=== PATIENT | female | born 1985 | race African-American/Black ===

== ENCOUNTER 2024-02-04 12:49 | Inpatient (IN) | payer OTHER ==
[~2024-02-04] VITALS: Ht 162.6 cm; Wt 114.3 kg
[2024-02-04] MEDS ORDERED: HYDROMORPHONE 1 MG/1 ML DISP.SYRIN IV ONE (13:30)
[2024-02-04] MEDS ORDERED: HYDROMORPHONE INJ 2 MG/ML DISP.SYRIN ONE ×3 (14:33→20:48)
[2024-02-04] MEDS ORDERED: diphenhydrAMINE HCL 50 MG/ML VIAL ONE ×2 (14:33→17:46)
[2024-02-04] MEDS: HYDROMORPHONE INJ 2 MG/ML DISP.SYRIN IM ONE ×3 (14:42→20:54)
[2024-02-04] MEDS: diphenhydrAMINE HCL 50 MG/ML VIAL IM ONE ×2 (14:42→17:51)
[2024-02-04 16:43] LABS: CALCIUM, SERUM 9.2 mg/dL (8.5-10.1); CREATININE 0.8 mg/dL (0.6-1.3); POTASSIUM 3.3 mmol/L (3.5-5.1)
[2024-02-04] MEDS ORDERED: ONDANSETRON HCL/PF 4 MG/2 ML VIAL ONE (20:47)
[2024-02-04 21:30] VITALS: O2SAT 99
[2024-02-04] MEDS: IV NS 0.9% 1,000 ML BAG IV ONE (22:00)
[2024-02-04] MEDS: ONDANSETRON HCL/PF - ER 4 MG/2 ML VIAL IV ONE (22:00)
[2024-02-04 22:14] LABS: BASOPHILS # (AUTO) 0.1 K/uL (0.0-0.2); BASOPHILS % (AUTO) 1.3 % (0.0-2.0); EOSINOPHILS # (AUTO) 0.1 K/uL (0.0-0.7); EOSINOPHILS % (AUTO) 1.6 % (0.0-6.0); HEMATOCRIT 26 % (33-45); HEMOGLOBIN 8.4 g/dL (11.5-14.8); MEAN CORPUSCULAR HEMOGLOBIN 28 PG (26.0-33.0); MEAN CORPUSCULAR HGB CONC 33 g/dl (31.0-36.0); MEAN CORPUSCULAR VOLUME 86 fL (82-100); MONOCYTES # (AUTO) 0.4 K/uL (0.1-1.30); MONOCYTES % (AUTO) 11.6 % (2.0-12.0); NEUTROPHILS # (AUTO) 2.3 K/uL (1.8-8.9); NEUTROPHILS % (AUTO) 60.5 % (43.0-81.0); PLATELET COUNT (AUTO) 133 K/uL (150-450); RED BLOOD CELL COUNT(AUTO) 2.99 MIL/uL (4.0-5.2); RED CELL DISTRIBUTION WIDTH 19.2 % (11.5-15.0); RETICULOCYTE COUNT 1.7 % (0.6-2.5); WHITE BLOOD COUNT (AUTO) 3.9 K/uL (4.3-11.0)
[2024-02-04] MEDS ORDERED: ACETAMINOPHEN 325 MG TABLET PO PRN (23:00)
[2024-02-04] MEDS ORDERED: MAGNESIUM HYDROXIDE 30 ML UDC PO PRN (23:00)
[2024-02-04] MEDS ORDERED: ONDANSETRON HCL/PF 4 MG/2 ML VIAL IVP PRN (23:00)
[2024-02-04] MEDS ORDERED: diphenhydrAMINE HCL 50 MG/ML VIAL IV PRN (23:00)
[2024-02-04] MEDS ORDERED: Z GUARD REMEDY 4 OZ OINT TP PRN (23:00)
[2024-02-04] MEDS ORDERED: MAG HYDROX/AL HYDROX/SIMETH 30 ML UDC PO PRN (23:00)
[2024-02-04] MEDS: POTASSIUM CHLORIDE 20 MEQ TAB.PRT.SR PO ONE (23:32)
[2024-02-04] MEDS: IV NS 0.9% 1,000 ML IV PRN (23:32)
[2024-02-05] MEDS: HYDROMORPHONE INJ 2 MG/ML DISP.SYRIN IV PRN (00:20)
[2024-02-05] MEDS: diphenhydrAMINE HCL 50 MG/ML VIAL IV PRN ×2 (00:20→11:42)
[2024-02-05 07:00] VITALS: BP 107/68; TEMP 97.5; O2SAT 100
[2024-02-05 07:22] LABS: BASOPHILS % (AUTO) 0.4 % (0.0-2.0); EOSINOPHILS # (AUTO) 0.1 K/uL (0.0-0.7); EOSINOPHILS % (AUTO) 1.3 % (0.0-6.0); HEMATOCRIT 26 % (33-45); HEMOGLOBIN 8.5 g/dL (11.5-14.8); LYMPHOCYTES # (AUTO) 0.8 K/uL (0.8-4.8); LYMPHOCYTES % (AUTO) 21.9 % (20.0-44.0); MEAN CORPUSCULAR HEMOGLOBIN 28 PG (26.0-33.0); MEAN CORPUSCULAR HGB CONC 32 g/dl (31.0-36.0); MEAN CORPUSCULAR VOLUME 86 fL (82-100); MONOCYTES # (AUTO) 0.4 K/uL (0.1-1.30); MONOCYTES % (AUTO) 10.1 % (2.0-12.0); NEUTROPHILS # (AUTO) 2.5 K/uL (1.8-8.9); NEUTROPHILS % (AUTO) 66.3 % (43.0-81.0); PLATELET COUNT (AUTO) 129 K/uL (150-450); RED BLOOD CELL COUNT(AUTO) 3.06 MIL/uL (4.0-5.2); RED CELL DISTRIBUTION WIDTH 19.1 % (11.5-15.0); WHITE BLOOD COUNT (AUTO) 3.8 K/uL (4.3-11.0)
[2024-02-05] MEDS: PANTOPRAZOLE 40 MG TABLET.DR PO SCH (07:54)
[2024-02-05] MEDS ORDERED: HYDR500C2 PO (08:13)
[2024-02-05] MEDS ORDERED: HYDR4TAB4 PO (08:13)
[2024-02-05] MEDS ORDERED: FOLI0.4T6 PO (08:13)
[2024-02-05] MEDS ORDERED: APIX5TAB PO (08:13)
[2024-02-05 08:20] LABS: CALCIUM, SERUM 8.4 mg/dL (8.5-10.1); CREATININE 0.8 mg/dL (0.6-1.3); PHOSPHORUS 5.1 mg/dL (2.5-4.9); POTASSIUM 3.6 mmol/L (3.5-5.1)
[2024-02-05] MEDS: HYDROXYUREA 500 MG CAPSULE PO SCH (10:59)
[2024-02-05 11:30] VITALS: BP 118/65; TEMP 98.2; O2SAT 100
[2024-02-05 14:22] LABS: HIV-1 p24 ANTIGEN NON REACTIVE (NONREACTIVE); HIV-1/2 ANTIBODY NON REACTIVE (NONREACTIVE)
[2024-02-05 16:00] VITALS: BP 112/55; TEMP 98.1; O2SAT 100
[2024-02-05] MEDS: APIXABAN 5 MG TABLET PO SCH (16:05)
[2024-02-05 20:00] VITALS: BP 113/67; TEMP 98.2; O2SAT 98
[2024-02-05] MEDS: IV NS 0.9% 1,000 ML IV PRN (21:53)
[2024-02-06 08:00] VITALS: BP 114/81; TEMP 98.4; O2SAT 98
[2024-02-06] MEDS: FOLIC ACID 1 MG TABLET PO SCH (08:23)
[2024-02-06 16:00] VITALS: BP 119/66; TEMP 99.1; O2SAT 100
[2024-02-06 20:33] VITALS: BP 119/56; TEMP 99.3; O2SAT 100
[2024-02-07 08:00] VITALS: BP 112/62; TEMP 100; O2SAT 98
[2024-02-07 10:09] LABS: HEPATITIS B SURFACE AB Equivocal (.)
[2024-02-07 16:00] VITALS: BP 108/60; TEMP 99.3; O2SAT 96
[2024-02-07 20:27] VITALS: BP 103/61; TEMP 99.9; O2SAT 96
== END 2024-02-07 21:00 | disposition home or self-care (01) | DRG 812 ==
LOC: ER 12:52 → MED 21:53
PROVIDERS: ADMIT Nurse Practitioner Family; ATTEND Nurse Practitioner Acute Care
PROC: 05HY33Z Insertion of Infusion Device into Upper Vein, Percutaneous Approach (ICD-10-PCS; principal; 2024-02-04)
DX: D57.00 Hb-SS disease with crisis, unspecified (principal); Z68.41 Body mass index [BMI] 40.0-44.9, adult; E87.6 Hypokalemia; G89.4 Chronic pain syndrome; E66.01 Morbid (severe) obesity due to excess calories; J45.909 Unspecified asthma, uncomplicated; Z79.01 Long term (current) use of anticoagulants; Z88.5 Allergy status to narcotic agent; Z86.711 Personal history of pulmonary embolism; Z86.718 Personal history of other venous thrombosis and embolism; Z53.9 Procedure and treatment not carried out, unspecified reason; R73.9 Hyperglycemia, unspecified
CPT/HCPCS: 36415; 80048-TC; 83735-TC; 84100-TC; 85025-TC; 85045-TC; 86706; 86803; 87806; A4223; A6253; G0378; J1171; J1200; J2405; J7030

== ENCOUNTER 2024-03-01 02:31 | Emergency (ER) | payer OTHER ==
[~2024-03-01] VITALS: Ht 170.2 cm; Wt 83.9 kg
[~2024-03-01 02:31] MED LIST: APIX5TAB PO; FOLI0.4T6 PO; HYDR4TAB4 PO; HYDR500C2 PO
[2024-03-01] MEDS ORDERED: ONDANSETRON HCL/PF 4 MG/2 ML VIAL ONE (03:23)
[2024-03-01] MEDS ORDERED: HYDROMORPHONE 1 MG/1 ML DISP.SYRIN ONE (03:24)
[2024-03-01] MEDS: IV NS 0.9% 1,000 ML BAG IV ONE (03:25)
[2024-03-01] MEDS: ONDANSETRON HCL/PF 4 MG/2 ML VIAL IVP ONE (03:25)
[2024-03-01] MEDS: HYDROMORPHONE 1 MG/1 ML DISP.SYRIN IV ONE (03:25)
[2024-03-01 03:46] LABS: LYMPHOCYTES # (AUTO) 1.2 K/uL (0.8-4.8); MONOCYTES # (AUTO) 0.4 K/uL (0.1-1.30)
[2024-03-01 03:52] LABS: BASOPHILS % (AUTO) 0.3 % (0.0-2.0); EOSINOPHILS % (AUTO) 1.7 % (0.0-6.0); HEMATOCRIT 27 % (33-45); HEMOGLOBIN 8.9 g/dL (11.5-14.8); LYMPHOCYTES % (AUTO) 44.7 % (20.0-44.0); MEAN CORPUSCULAR HEMOGLOBIN 29 PG (26.0-33.0); MEAN CORPUSCULAR HGB CONC 33 g/dl (31.0-36.0); MEAN CORPUSCULAR VOLUME 87 fL (82-100); MONOCYTES % (AUTO) 13.7 % (2.0-12.0); NEUTROPHILS # (AUTO) 1.1 K/uL (1.8-8.9); NEUTROPHILS % (AUTO) 39.6 % (43.0-81.0); PLATELET COUNT (AUTO) 86 K/uL (150-450); RED BLOOD CELL COUNT(AUTO) 3.11 MIL/uL (4.0-5.2); WHITE BLOOD COUNT (AUTO) 2.7 K/uL (4.3-11.0)
[2024-03-01 04:01] LABS: CALCIUM, SERUM 8.4 mg/dL (8.5-10.1); CREATININE 0.8 mg/dL (0.6-1.3); POTASSIUM 4.4 mmol/L (3.5-5.1)
[2024-03-01 04:08] LABS: PARTIAL THROMBOPLASTIN TIME 28.1 SEC (24.3-34.3); PROTHROMBIN TIME 10.6 SECS (9.2-11.1)
[2024-03-01 04:30] VITALS: BP 138/86; TEMP 98.3; O2SAT 100
[2024-03-01 06:57] LABS: BASOPHILS % (MANUAL) 0 % (0.0-2.0); EOSINOPHILS % (MANUAL) 0 % (0-4); LYMPHOCYTES % (MANUAL) 48 % (16-48); MONOCYTES % (MANUAL) 15 % (0-11.0); NEUTROPHILS % (MANUAL) 37 (42-76)
[2024-03-01 06:58] LABS: ANISOCYTOSIS 2+; PLATELET ESTIMATE DECREASED
== END 2024-03-01 04:39 | disposition home or self-care (01) ==
LOC: ER 02:33
DX: D57.00 Hb-SS disease with crisis, unspecified (principal); J45.909 Unspecified asthma, uncomplicated; Z79.01 Long term (current) use of anticoagulants; Z88.5 Allergy status to narcotic agent
CPT/HCPCS: 99284; 96374; 96361; 96375; 85025; 80048; 36415; 85730; 85007; J2405; J7030; J1171

== ENCOUNTER 2024-03-20 15:13 | Emergency (ER) | payer OTHER ==
[~2024-03-20] VITALS: Ht 162.6 cm; Wt 113.4 kg
[2024-03-20] MEDS ORDERED: diphenhydrAMINE HCL 50 MG/ML VIAL ONE (16:56)
[2024-03-20] MEDS ORDERED: HYDROMORPHONE INJ 2 MG/ML DISP.SYRIN ONE (16:57)
[2024-03-20] MEDS: HYDROMORPHONE INJ 2 MG/ML DISP.SYRIN IM ONE (17:05)
[2024-03-20] MEDS: diphenhydrAMINE HCL 50 MG/ML VIAL IM ONE (17:05)
[2024-03-20 19:04] VITALS: BP 137/82; TEMP 98; O2SAT 99
== END 2024-03-20 19:09 | disposition home or self-care (01) ==
LOC: ER 15:13
DX: D57.00 Hb-SS disease with crisis, unspecified (principal); J45.909 Unspecified asthma, uncomplicated; Z79.01 Long term (current) use of anticoagulants; Z60.2 Problems related to living alone; Z88.5 Allergy status to narcotic agent
CPT/HCPCS: 99284; 71045; 96372 ×2; 93005; J1200; J1171

== ENCOUNTER 2024-04-18 16:50 | Inpatient (IN) | payer OTHER ==
[~2024-04-18] VITALS: Ht 162.6 cm; Wt 112.9 kg
[2024-04-18] MEDS ORDERED: diphenhydrAMINE HCL 50 MG/ML VIAL ONE ×2 (18:28→20:23)
[2024-04-18] MEDS ORDERED: HYDROMORPHONE INJ 2 MG/ML DISP.SYRIN ONE ×3 (18:28→23:26)
[2024-04-18] MEDS: IV NS 0.9% 1,000 ML BAG IV ONE (18:30)
[2024-04-18 18:31] LABS: BASOPHILS % (AUTO) 0.3 % (0.0-2.0); EOSINOPHILS # (AUTO) 0.1 K/uL (0.0-0.7); EOSINOPHILS % (AUTO) 1.8 % (0.0-6.0); HEMATOCRIT 27 % (33-45); HEMOGLOBIN 8.6 g/dL (11.5-14.8); LYMPHOCYTES # (AUTO) 0.7 K/uL (0.8-4.8); LYMPHOCYTES % (AUTO) 22.2 % (20.0-44.0); MEAN CORPUSCULAR HEMOGLOBIN 27 PG (26.0-33.0); MEAN CORPUSCULAR HGB CONC 32 g/dl (31.0-36.0); MEAN CORPUSCULAR VOLUME 84 fL (82-100); MONOCYTES # (AUTO) 0.4 K/uL (0.1-1.30); MONOCYTES % (AUTO) 13.1 % (2.0-12.0); NEUTROPHILS # (AUTO) 1.9 K/uL (1.8-8.9); NEUTROPHILS % (AUTO) 62.6 % (43.0-81.0); PLATELET COUNT (AUTO) 79 K/uL (150-450); RED CELL DISTRIBUTION WIDTH 21.8 % (11.5-15.0); WHITE BLOOD COUNT (AUTO) 3.1 K/uL (4.3-11.0)
[2024-04-18] MEDS: diphenhydrAMINE HCL 50 MG/ML VIAL IV ONE ×2 (18:31→20:29)
[2024-04-18 18:37] LABS: CALCIUM, SERUM 9.1 mg/dL (8.5-10.1); CREATININE 0.8 mg/dL (0.6-1.3)
[2024-04-18] MEDS: HYDROMORPHONE INJ 2 MG/ML DISP.SYRIN IV ONE ×3 (18:38→23:27)
[2024-04-18 23:50] VITALS: BP 127/61; TEMP 98; O2SAT 96
[2024-04-18 23:51] LABS: APPEARANCE,URINE SLIGHTLY CLOUDY (CLEAR); BILIRUBIN,URINE NEGATIVE (NEGATIVE); BLOOD, URINE NEGATIVE Ery/uL (NEGATIVE); COLOR,URINE YELLOW (YELLOW); KETONES,URINE NEGATIVE (NEGATIVE); LEUKOCYTE ESTERASE ,URINE NEGATIVE (NEGATIVE); NITRITE, URINE NEGATIVE (NEGATIVE); PH,URINE 6.5 (5.0-8.0); PROTEIN,URINE NEGATIVE (NEGATIVE); UGLUCOSE NEGATIVE (NEGATIVE)
[2024-04-19 00:06] LABS: PREGNANCY TEST URINE QUAL NEGATIVE (NEGATIVE)
[2024-04-19 00:21] LABS: RBC,URINE NONE SEEN /HPF (0-2); WBC,URINE NONE SEEN /HPF (0-3)
[2024-04-19 00:22] LABS: ADD URINE CULTURE NO; BACTERIA,URINE Rare /HPF (None Seen); SQUAMOUS EPITHELIAL CELL,UR 81-100 /HPF (None Seen)
[2024-04-19] MEDS ORDERED: ACETAMINOPHEN 325 MG TABLET PO PRN (01:30)
[2024-04-19] MEDS ORDERED: ONDANSETRON HCL/PF 4 MG/2 ML VIAL IVP PRN (01:30)
[2024-04-19] MEDS ORDERED: MAG HYDROX/AL HYDROX/SIMETH 30 ML UDC PO PRN (01:30)
[2024-04-19] MEDS ORDERED: diphenhydrAMINE HCL 50 MG/ML VIAL IV PRN (01:30)
[2024-04-19 01:49] VITALS: BP 127/61; TEMP 98; O2SAT 96
[2024-04-19] MEDS: IV NS 0.9% 1,000 ML IV PRN (02:33)
[2024-04-19] MEDS: HYDROMORPHONE INJ 2 MG/ML DISP.SYRIN IV PRN (02:37)
[2024-04-19 05:53] LABS: ANISOCYTOSIS 1+; EOSINOPHILS % (MANUAL) 3 % (0-4); LYMPHOCYTES % (MANUAL) 19 % (16-48); MONOCYTES % (MANUAL) 14 % (0-11.0); NEUTROPHILS % (MANUAL) 64 (42-76); PLATELET ESTIMATE DECREASED
[2024-04-19] MEDS: APIXABAN 5 MG TABLET PO SCH (08:27)
[2024-04-19] MEDS: HYDROXYUREA 500 MG CAPSULE PO SCH (08:28)
[2024-04-19] MEDS: FOLIC ACID 1 MG TABLET PO SCH ×2 (10:02→12:33)
[2024-04-19 16:00] VITALS: BP 118/59; TEMP 97.9; O2SAT 100
[2024-04-19 19:55] VITALS: BP 134/80; TEMP 97.5; O2SAT 100
[2024-04-19 20:44] VITALS: BP 115/77; TEMP 98.5; O2SAT 95
[2024-04-19 20:48] VITALS: BP 134/80; TEMP 97.5; O2SAT 100
[2024-04-19 20:52] VITALS: BP 134/80; TEMP 97.5; O2SAT 100
[2024-04-20 08:28] VITALS: BP 99/58; TEMP 97.7; O2SAT 98
[2024-04-20 09:52] LABS: BASOPHILS % (AUTO) 0.5 % (0.0-2.0); EOSINOPHILS # (AUTO) 0.1 K/uL (0.0-0.7); EOSINOPHILS % (AUTO) 2.1 % (0.0-6.0); HEMATOCRIT 26 % (33-45); HEMOGLOBIN 8.4 g/dL (11.5-14.8); LYMPHOCYTES # (AUTO) 0.9 K/uL (0.8-4.8); LYMPHOCYTES % (AUTO) 35.7 % (20.0-44.0); MEAN CORPUSCULAR HEMOGLOBIN 27 PG (26.0-33.0); MEAN CORPUSCULAR HGB CONC 32 g/dl (31.0-36.0); MEAN CORPUSCULAR VOLUME 84 fL (82-100); MONOCYTES # (AUTO) 0.2 K/uL (0.1-1.30); MONOCYTES % (AUTO) 8.8 % (2.0-12.0); NEUTROPHILS # (AUTO) 1.3 K/uL (1.8-8.9); NEUTROPHILS % (AUTO) 52.9 % (43.0-81.0); PLATELET COUNT (AUTO) 73 K/uL (150-450); RED BLOOD CELL COUNT(AUTO) 3.13 MIL/uL (4.0-5.2); RED CELL DISTRIBUTION WIDTH 21.4 % (11.5-15.0); WHITE BLOOD COUNT (AUTO) 2.5 K/uL (4.3-11.0)
[2024-04-20 10:03] LABS: CALCIUM, SERUM 8.4 mg/dL (8.5-10.1); CREATININE 0.7 mg/dL (0.6-1.3); PHOSPHORUS 3.8 mg/dL (2.5-4.9); POTASSIUM 4.1 mmol/L (3.5-5.1)
[2024-04-20 12:12] LABS: ANISOCYTOSIS 1+; BASOPHILS % (MANUAL) 0 % (0.0-2.0); EOSINOPHILS % (MANUAL) 3 % (0-4); LYMPHOCYTES % (MANUAL) 31 % (16-48); MONOCYTES % (MANUAL) 11 % (0-11.0); NEUTROPHILS % (MANUAL) 55 (42-76); PLATELET ESTIMATE DECREASED
[2024-04-20 16:27] VITALS: BP 114/71; TEMP 98.2; O2SAT 95
[2024-04-20 20:00] VITALS: BP 131/85; TEMP 98.5; O2SAT 100
[2024-04-21 08:00] VITALS: BP 142/86; TEMP 98.2; O2SAT 99
[2024-04-21] MEDS: HYDROMORPHONE HCL 2 MG TABLET PO PRN (11:56)
[2024-04-21 15:55] VITALS: BP 156/88; TEMP 98.1; O2SAT 100
== END 2024-04-21 17:30 | disposition home or self-care (01) | DRG 812 ==
LOC: ER 17:01 → MED 23:32
PROVIDERS: ADMIT Nurse Practitioner Acute Care; ATTEND Internal Medicine
DX: D57.00 Hb-SS disease with crisis, unspecified (principal); D68.59 Other primary thrombophilia; J45.909 Unspecified asthma, uncomplicated; Z79.01 Long term (current) use of anticoagulants; Z88.5 Allergy status to narcotic agent; Z91.013 Allergy to seafood; Z79.899 Other long term (current) drug therapy
CPT/HCPCS: 36415; 80048-TC; 81001; 83615-TC; 83735-TC; 84100-TC; 84703-TC; 85025-TC; 85045-TC; 87081-TC; A4223; G0378; J1171; J1200; J7030

== ENCOUNTER 2024-05-02 21:40 | Emergency (ER) | payer OTHER ==
[~2024-05-02] VITALS: Ht 162.6 cm; Wt 97.5 kg
[2024-05-02] MEDS ORDERED: HYDROMORPHONE 1 MG/1 ML DISP.SYRIN ONE (22:51)
[2024-05-02] MEDS: IV NS 0.9% 1,000 ML BAG IV ONE (23:00)
[2024-05-02] MEDS: HYDROMORPHONE 1 MG/1 ML DISP.SYRIN IV ONE (23:00)
[2024-05-03 00:04] LABS: BASOPHILS # (AUTO) 0.1 K/uL (0.0-0.2); BASOPHILS % (AUTO) 1.3 % (0.0-2.0); EOSINOPHILS % (AUTO) 0.4 % (0.0-6.0); HEMATOCRIT 28 % (33-45); HEMOGLOBIN 8.9 g/dL (11.5-14.8); LYMPHOCYTES # (AUTO) 1.1 K/uL (0.8-4.8); LYMPHOCYTES % (AUTO) 19.7 % (20.0-44.0); MEAN CORPUSCULAR HEMOGLOBIN 26 PG (26.0-33.0); MEAN CORPUSCULAR HGB CONC 32 g/dl (31.0-36.0); MEAN CORPUSCULAR VOLUME 82 fL (82-100); MONOCYTES # (AUTO) 0.7 K/uL (0.1-1.30); MONOCYTES % (AUTO) 12.6 % (2.0-12.0); NEUTROPHILS # (AUTO) 3.7 K/uL (1.8-8.9); PLATELET COUNT (AUTO) 74 K/uL (150-450); RED BLOOD CELL COUNT(AUTO) 3.36 MIL/uL (4.0-5.2); RED CELL DISTRIBUTION WIDTH 22.3 % (11.5-15.0); WHITE BLOOD COUNT (AUTO) 5.6 K/uL (4.3-11.0)
[2024-05-03] MEDS ORDERED: HYDROMORPHONE 1 MG/1 ML DISP.SYRIN ONE (00:06)
[2024-05-03 00:14] LABS: CREATININE 0.7 mg/dL (0.6-1.3); POTASSIUM 3.2 mmol/L (3.5-5.1)
[2024-05-03 00:35] LABS: APPEARANCE,URINE CLEAR (CLEAR); BILIRUBIN,URINE NEGATIVE (NEGATIVE); BLOOD, URINE TRACE-INTA Ery/uL (NEGATIVE); COLOR,URINE YELLOW (YELLOW); KETONES,URINE TRACE mg/dL (NEGATIVE); LEUKOCYTE ESTERASE ,URINE NEGATIVE (NEGATIVE); NITRITE, URINE NEGATIVE (NEGATIVE); PH,URINE 6.5 (5.0-8.0); PROTEIN,URINE TRACE mg/dl (NEGATIVE); UGLUCOSE NEGATIVE (NEGATIVE); UROBILINOGEN,URINE 0.2 EU/dL (0.2)
[2024-05-03 00:46] VITALS: BP 147/65; TEMP 98.3; O2SAT 98
[2024-05-03 00:47] LABS: PREGNANCY TEST URINE QUAL NEGATIVE (NEGATIVE)
[2024-05-03 01:13] LABS: ADD URINE CULTURE NO; BACTERIA,URINE Rare /HPF (None Seen); RBC,URINE 0-2 /HPF (0-2); SQUAMOUS EPITHELIAL CELL,UR Moderate /HPF (None Seen); WBC,URINE 0-2 /HPF (0-3)
[2024-05-03 02:26] LABS: ANISOCYTOSIS 1+; BASOPHILS % (MANUAL) 0 % (0.0-2.0); EOSINOPHILS % (MANUAL) 0 % (0-4); LYMPHOCYTES % (MANUAL) 25 % (16-48); MONOCYTES % (MANUAL) 19 % (0-11.0); NEUTROPHILS % (MANUAL) 56 (42-76); PLATELET ESTIMATE DECREASED; STOMATOCYTES FEW
== END 2024-05-03 00:48 | disposition home or self-care (01) ==
LOC: ER 21:47
DX: D57.00 Hb-SS disease with crisis, unspecified (principal); J45.909 Unspecified asthma, uncomplicated; Z79.01 Long term (current) use of anticoagulants; Z88.5 Allergy status to narcotic agent; Z60.2 Problems related to living alone
CPT/HCPCS: 99283; 96374; 85025; 80048; 85045; 36415; 84703; 81001; 85007; J1171; J7030

== ENCOUNTER 2024-07-12 10:03 | Emergency (ER) | payer OTHER, MEDICAID ==
[~2024-07-12] VITALS: Ht 162.6 cm; Wt 93.0 kg
[2024-07-12 10:53] VITALS: TEMP 98.4
[2024-07-12] MEDS ORDERED: HYDROMORPHONE INJ SYRINGE 1 MG in IV D5W 50 ML IV PRN (11:30)
[2024-07-12] MEDS ORDERED: HYDROMORPHONE INJ 2 MG/ML DISP.SYRIN ONE (11:38)
[2024-07-12] MEDS ORDERED: diphenhydrAMINE HCL 25 MG CAPSULE ONE (11:38)
[2024-07-12] MEDS: HYDROMORPHONE INJ 2 MG/ML DISP.SYRIN IM ONE (11:44)
[2024-07-12] MEDS: diphenhydrAMINE HCL 25 MG CAPSULE PO ONE (11:45)
[2024-07-12] MEDS: IV NS 0.9% 1,000 ML BAG IV ONE (12:25)
[2024-07-12 12:34] LABS: BASOPHILS # (AUTO) 0.1 K/uL (0.0-0.2); BASOPHILS % (AUTO) 1.4 % (0.0-2.0); EOSINOPHILS # (AUTO) 0.7 K/uL (0.0-0.7); EOSINOPHILS % (AUTO) 7.7 % (0.0-6.0); HEMATOCRIT 29 % (33-45); HEMOGLOBIN 9.5 g/dL (11.5-14.8); LYMPHOCYTES # (AUTO) 0.8 K/uL (0.8-4.8); LYMPHOCYTES % (AUTO) 8.5 % (20.0-44.0); MEAN CORPUSCULAR HEMOGLOBIN 25 PG (26.0-33.0); MEAN CORPUSCULAR HGB CONC 33 g/dl (31.0-36.0); MEAN CORPUSCULAR VOLUME 77 fL (82-100); MONOCYTES # (AUTO) 0.6 K/uL (0.1-1.30); MONOCYTES % (AUTO) 7.3 % (2.0-12.0); NEUTROPHILS # (AUTO) 6.6 K/uL (1.8-8.9); NEUTROPHILS % (AUTO) 75.1 % (43.0-81.0); PLATELET COUNT (AUTO) 121 K/uL (150-450); RED BLOOD CELL COUNT(AUTO) 3.76 MIL/uL (4.0-5.2); RED CELL DISTRIBUTION WIDTH 19.8 % (11.5-15.0); WHITE BLOOD COUNT (AUTO) 8.8 K/uL (4.3-11.0)
[2024-07-12 12:44] LABS: ALBUMIN 3.1 g/dL (3.4-5.0); BILIRUBIN,TOTAL 0.5 mg/dL (0.2-1.0); CALCIUM, SERUM 9.1 mg/dL (8.5-10.1); CREATININE 0.9 mg/dL (0.6-1.3); POTASSIUM 4.1 mmol/L (3.5-5.1); TOTAL PROTEIN, SERUM 8.3 g/dL (6.4-8.2)
[2024-07-12] MEDS ORDERED: HYDROMORPHONE 1 MG/1 ML DISP.SYRIN ONE (12:54)
[2024-07-12] MEDS: HYDROMORPHONE 1 MG/1 ML DISP.SYRIN IV ONE (12:58)
[2024-07-12 13:39] LABS: RETICULOCYTE COUNT 1.8 % (0.6-2.5)
[2024-07-12 14:27] VITALS: BP 109/75; O2SAT 100
[2024-07-17 20:50] LABS: BASOPHILS % (AUTO) 1.1 % (0.0-2.0); EOSINOPHILS # (AUTO) 0.1 K/uL (0.0-0.7); EOSINOPHILS % (AUTO) 3.3 % (0.0-6.0); HEMATOCRIT 24 % (33-45); HEMOGLOBIN 7.8 g/dL (11.5-14.8); LYMPHOCYTES # (AUTO) 0.8 K/uL (0.8-4.8); LYMPHOCYTES % (AUTO) 20.4 % (20.0-44.0); MEAN CORPUSCULAR HEMOGLOBIN 26 PG (26.0-33.0); MEAN CORPUSCULAR HGB CONC 33 g/dl (31.0-36.0); MEAN CORPUSCULAR VOLUME 77 fL (82-100); MONOCYTES # (AUTO) 0.4 K/uL (0.1-1.30); MONOCYTES % (AUTO) 11.2 % (2.0-12.0); NEUTROPHILS # (AUTO) 2.5 K/uL (1.8-8.9); PLATELET COUNT (AUTO) 83 K/uL (150-450); RED BLOOD CELL COUNT(AUTO) 3.04 MIL/uL (4.0-5.2); RED CELL DISTRIBUTION WIDTH 21.3 % (11.5-15.0); RETICULOCYTE COUNT 1.9 % (0.6-2.5)
[2024-07-17 21:05] LABS: INR 1.07 (0.91-1.10); PROTHROMBIN TIME 11.3 SECS (9.2-11.1)
[2024-07-17 21:09] LABS: CALCIUM, SERUM 8.8 mg/dL (8.5-10.1)
[2024-07-17 21:15] LABS: ALBUMIN 2.8 g/dL (3.4-5.0); BILIRUBIN,TOTAL 0.5 mg/dL (0.2-1.0)
[2024-07-17 23:04] LABS: PLATELET ESTIMATE DECREASED
[2024-07-17 23:05] LABS: EOSINOPHILS % (MANUAL) 3 % (0-4); LYMPHOCYTES % (MANUAL) 27 % (16-48); MONOCYTES % (MANUAL) 9 % (0-11.0); NEUTROPHILS % (MANUAL) 61 (42-76)
[2024-07-17 23:06] LABS: STOMATOCYTES 1+
[2024-07-17 23:07] LABS: ANISOCYTOSIS 1+
== END 2024-07-12 14:22 | disposition home or self-care (01) ==
LOC: ER 10:10
DX: D57.219 Sickle-cell/Hb-C disease with crisis, unspecified (principal); J45.909 Unspecified asthma, uncomplicated; Z79.01 Long term (current) use of anticoagulants; Z88.5 Allergy status to narcotic agent; Z60.2 Problems related to living alone
CPT/HCPCS: 99284; 96374; 96361; 96372; 85025; 85045; 36415; 80053; J1171 ×2; Q0163; J7030

== ENCOUNTER 2024-07-17 17:21 | Emergency (ER) | payer OTHER, MEDICAID ==
[~2024-07-17] VITALS: Ht 162.6 cm; Wt 93.0 kg
[2024-07-17] MEDS: IV NS 0.9% 1,000 ML BAG IV ONE (18:00)
[2024-07-17] MEDS: PANTOPRAZOLE 40 MG VIAL IV ONE (18:15)
[2024-07-17] MEDS: METOCLOPRAMIDE HCL 10 MG/2 ML VIAL IV ONE (18:15)
[2024-07-17] MEDS: FAMOTIDINE/PF INJ 20 MG/2 ML VIAL IV ONE (18:15)
[2024-07-17] MEDS ORDERED: HYDROMORPHONE INJ 2 MG/ML DISP.SYRIN IM ONE (19:30)
[2024-07-17] MEDS ORDERED: HYDROMORPHONE 1 MG/1 ML DISP.SYRIN ONE (20:04)
[2024-07-17] MEDS ORDERED: diphenhydrAMINE HCL 50 MG CAPSULE ONE (20:04)
[2024-07-17] MEDS: diphenhydrAMINE HCL 25 MG CAPSULE PO ONE (20:05)
[2024-07-17] MEDS: HYDROMORPHONE 1 MG/1 ML DISP.SYRIN IM ONE (20:05)
[2024-07-17] MEDS: HYDROMORPHONE 1 MG/1 ML DISP.SYRIN IV ONE (21:53)
[2024-07-18 00:22] LABS: BASOPHILS # (AUTO) 0.1 K/uL (0.0-0.2); BASOPHILS % (AUTO) 1.4 % (0.0-2.0); EOSINOPHILS # (AUTO) 0.1 K/uL (0.0-0.7); EOSINOPHILS % (AUTO) 2.6 % (0.0-6.0); HEMATOCRIT 23 % (33-45); HEMOGLOBIN 7.5 g/dL (11.5-14.8); LYMPHOCYTES # (AUTO) 0.8 K/uL (0.8-4.8); LYMPHOCYTES % (AUTO) 22.2 % (20.0-44.0); MEAN CORPUSCULAR HEMOGLOBIN 25 PG (26.0-33.0); MEAN CORPUSCULAR HGB CONC 33 g/dl (31.0-36.0); MEAN CORPUSCULAR VOLUME 78 fL (82-100); MONOCYTES # (AUTO) 0.3 K/uL (0.1-1.30); MONOCYTES % (AUTO) 8.6 % (2.0-12.0); NEUTROPHILS # (AUTO) 2.4 K/uL (1.8-8.9); NEUTROPHILS % (AUTO) 65.2 % (43.0-81.0); PLATELET COUNT (AUTO) 83 K/uL (150-450); RED BLOOD CELL COUNT(AUTO) 2.96 MIL/uL (4.0-5.2); RED CELL DISTRIBUTION WIDTH 20.8 % (11.5-15.0); WHITE BLOOD COUNT (AUTO) 3.7 K/uL (4.3-11.0)
[2024-07-18 01:50] VITALS: BP 119/64; TEMP 98.5; O2SAT 97
== END 2024-07-18 01:52 | disposition home or self-care (01) ==
LOC: ER 17:25
DX: D57.1 Sickle-cell disease without crisis (principal); J45.909 Unspecified asthma, uncomplicated; K92.0 Hematemesis; Z79.01 Long term (current) use of anticoagulants; Z88.5 Allergy status to narcotic agent; Z60.2 Problems related to living alone
CPT/HCPCS: 99284; 96374; 96361; 96372; 85025; 36415; J1171 ×2; Q0163; J7030; A4223; J2470; J2765; J3490

== ENCOUNTER 2024-08-10 15:32 | Emergency (ER) | payer OTHER, MEDICAID ==
[~2024-08-10] VITALS: Ht 162.6 cm; Wt 93.0 kg
[2024-08-10 15:49] VITALS: BP 125/72; TEMP 98.1; O2SAT 99
== END 2024-08-10 18:28 | disposition left against medical advice (07) ==
LOC: ER 15:36
DX: M79.10 Myalgia, unspecified site (principal); K92.0 Hematemesis; Z53.21 Procedure and treatment not carried out due to patient leaving prior to being seen by health care provider

== ENCOUNTER 2024-09-12 12:35 | Emergency (ER) | payer OTHER, MEDICAID ==
[~2024-09-12] VITALS: Ht 162.6 cm; Wt 90.7 kg
[2024-09-12] MEDS ORDERED: diphenhydrAMINE HCL 50 MG/ML VIAL ONE (15:08)
[2024-09-12] MEDS ORDERED: HYDROMORPHONE INJ 2 MG/ML DISP.SYRIN ONE ×2 (15:08→16:16)
[2024-09-12] MEDS: diphenhydrAMINE HCL 50 MG/ML VIAL IM ONE (15:14)
[2024-09-12] MEDS: HYDROMORPHONE INJ 2 MG/ML DISP.SYRIN IM ONE ×2 (15:15→16:51)
[2024-09-12 15:25] LABS: EOSINOPHILS # (AUTO) 0.1 K/uL (0.0-0.7); EOSINOPHILS % (AUTO) 3.7 % (0.0-6.0); HEMATOCRIT 23 % (33-45); HEMOGLOBIN 7.3 g/dL (11.5-14.8); LYMPHOCYTES # (AUTO) 0.7 K/uL (0.8-4.8); LYMPHOCYTES % (AUTO) 23.8 % (20.0-44.0); MEAN CORPUSCULAR HEMOGLOBIN 25 PG (26.0-33.0); MEAN CORPUSCULAR HGB CONC 32 g/dl (31.0-36.0); MEAN CORPUSCULAR VOLUME 77 fL (82-100); MONOCYTES # (AUTO) 0.4 K/uL (0.1-1.30); MONOCYTES % (AUTO) 13.7 % (2.0-12.0); NEUTROPHILS # (AUTO) 1.8 K/uL (1.8-8.9); NEUTROPHILS % (AUTO) 57.8 % (43.0-81.0); RED BLOOD CELL COUNT(AUTO) 2.95 MIL/uL (4.0-5.2); RED CELL DISTRIBUTION WIDTH 21.8 % (11.5-15.0); WHITE BLOOD COUNT (AUTO) 3.1 K/uL (4.3-11.0)
[2024-09-12 15:29] LABS: PLATELET COUNT (AUTO) 60 K/uL (150-450)
[2024-09-12 15:32] LABS: CALCIUM, SERUM 8.9 mg/dL (8.5-10.1); CREATININE 0.8 mg/dL (0.6-1.3); POTASSIUM 3.1 mmol/L (3.5-5.1)
[2024-09-12 15:54] LABS: EOSINOPHILS % (MANUAL) 2 % (0-4); LYMPHOCYTES % (MANUAL) 15 % (16-48); MONOCYTES % (MANUAL) 11 % (0-11.0); NEUTROPHILS % (MANUAL) 72 (42-76); PLATELET ESTIMATE DECREASED
[2024-09-12 15:55] LABS: ANISOCYTOSIS 1+
[2024-09-12 16:22] VITALS: BP 120/67; TEMP 98.1; O2SAT 96
== END 2024-09-12 16:23 | disposition home or self-care (01) ==
LOC: ER 12:37
DX: D57.00 Hb-SS disease with crisis, unspecified (principal); D50.9 Iron deficiency anemia, unspecified; D61.818 Other pancytopenia; J45.909 Unspecified asthma, uncomplicated; Z79.01 Long term (current) use of anticoagulants; Z88.5 Allergy status to narcotic agent; Z79.899 Other long term (current) drug therapy
CPT/HCPCS: 99284; 96372 ×2; 85025; 80048; 85045; 36415; J1200; J1171 ×2

== ENCOUNTER 2024-10-14 14:01 | Inpatient (IN) | payer OTHER, MEDICAID ==
[~2024-10-14] VITALS: Ht 162.6 cm; Wt 89.4 kg
[2024-10-14] MEDS ORDERED: ONDANSETRON HCL/PF - ER 4 MG/2 ML VIAL IV ONE (14:30)
[2024-10-14] MEDS ORDERED: HYDROMORPHONE INJ 2 MG/ML DISP.SYRIN IV ONE (14:30)
[2024-10-14] MEDS ORDERED: IV NS 0.9% 1,000 ML BAG IV ONE (14:30)
[2024-10-14] MEDS ORDERED: HYDROMORPHONE INJ 2 MG/ML DISP.SYRIN ONE ×2 (15:11→17:28)
[2024-10-14 15:14] LABS: CALCIUM, SERUM 8.6 mg/dL (8.5-10.1); CREATININE 0.7 mg/dL (0.6-1.3); RED BLOOD CELL COUNT(AUTO) 3.16 MIL/uL (4.0-5.2); RED CELL DISTRIBUTION WIDTH 22.6 % (11.5-15.0); SODIUM SERUM 137 mmol/L (136-145); UREA NITROGEN, BLOOD 7 mg/dL (7-18); WHITE BLOOD COUNT (AUTO) 3.4 K/uL (4.3-11.0)
[2024-10-14 15:20] LABS: ASPARTATE AMINOTRANSFERASE 16 U/L (15-37); TOTAL PROTEIN, SERUM 7.5 g/dL (6.4-8.2)
[2024-10-14] MEDS: HYDROMORPHONE INJ 2 MG/ML DISP.SYRIN IM ONE (15:20)
[2024-10-14 15:21] LABS: APPEARANCE,URINE CLEAR (CLEAR); BLOOD, URINE TRACE-INTA Ery/uL (NEGATIVE); LEUKOCYTE ESTERASE ,URINE NEGATIVE (NEGATIVE); NITRITE, URINE NEGATIVE (NEGATIVE); UGLUCOSE NEGATIVE (NEGATIVE)
[2024-10-14 15:49] LABS: PREGNANCY TEST URINE QUAL POSITIVE (NEGATIVE)
[2024-10-14 15:53] LABS: PLATELET COUNT (AUTO) 42 K/uL (150-450)
[2024-10-14 16:17] LABS: BASOPHILS % (MANUAL) 0 % (0.0-2.0); EOSINOPHILS % (MANUAL) 3 % (0-4); LYMPHOCYTES % (MANUAL) 30 % (16-48); MONOCYTES % (MANUAL) 13 % (0-11.0); NEUTROPHILS % (MANUAL) 54 (42-76); PLATELET ESTIMATE DECREASED
[2024-10-14 16:32] LABS: ADD URINE CULTURE NO; SQUAMOUS EPITHELIAL CELL,UR Few /HPF (None Seen); YEAST,URINE Few /HPF (None Seen)
[2024-10-14] MEDS ORDERED: ALBU18HF2 IH (16:35)
[2024-10-14] MEDS: HYDROMORPHONE INJ 2 MG/ML DISP.SYRIN IV ONE (17:33)
[2024-10-14 18:30] LABS: PREGNANCY TEST URINE QUAL NEGATIVE (NEGATIVE)
[2024-10-14] MEDS ORDERED: Z GUARD REMEDY 4 OZ OINT TP PRN (19:30)
[2024-10-14] MEDS ORDERED: ALBUTEROL SULFATE 8 GM HFA.AER.AD IH PRN (19:30)
[2024-10-14] MEDS ORDERED: MAG HYDROX/AL HYDROX/SIMETH 30 ML UDC PO PRN (19:30)
[2024-10-14] MEDS ORDERED: MAGNESIUM HYDROXIDE 30 ML UDC PO PRN (19:30)
[2024-10-14] MEDS ORDERED: ONDANSETRON HCL/PF 4 MG/2 ML VIAL IVP PRN (19:30)
[2024-10-14] MEDS: IV NS 0.9% 1,000 ML IV SCH (20:46)
[2024-10-14 22:00] VITALS: BP 99/48; TEMP 97.9
[2024-10-14] MEDS: HYDROMORPHONE INJ 2 MG/ML DISP.SYRIN IV PRN (22:44)
[2024-10-15 06:00] VITALS: BP_SYST 107; BP_DIAS 56; BP_DIAS 58; TEMP 97.5
[2024-10-15] MEDS: PANTOPRAZOLE 40 MG TABLET.DR PO SCH (07:30)
[2024-10-15] MEDS ORDERED: ALBUTEROL FS 2.5 MG/3 ML VIAL.NEB IH PRN (07:35)
[2024-10-15 08:00] VITALS: BP 116/59; TEMP 97.9
[2024-10-15 16:00] VITALS: BP 114/63; TEMP 97.7
[2024-10-15 17:13] LABS: RED BLOOD CELL COUNT(AUTO) 3.26 MIL/uL (4.0-5.2); RED CELL DISTRIBUTION WIDTH 21.7 % (11.5-15.0); WHITE BLOOD COUNT (AUTO) 2.8 K/uL (4.3-11.0)
[2024-10-15 17:30] LABS: PLATELET COUNT (AUTO) 49 K/uL (150-450)
[2024-10-15 17:36] LABS: BASOPHILS % (MANUAL) 0 % (0.0-2.0); EOSINOPHILS % (MANUAL) 2 % (0-4); LDL 59.0 mg/dL (0-99); LYMPHOCYTES % (MANUAL) 35 % (16-48); MONOCYTES % (MANUAL) 9 % (0-11.0); NEUTROPHILS % (MANUAL) 54 (42-76); PLATELET ESTIMATE DECREASED
[2024-10-15 17:39] LABS: CALCIUM, SERUM 8.8 mg/dL (8.5-10.1); UREA NITROGEN, BLOOD 7.0 mg/dL (7-18)
[2024-10-15 17:51] LABS: SODIUM SERUM 141.0 mmol/L (136-145)
[2024-10-15 17:52] LABS: CREATININE 0.5 mg/dL (0.6-1.3)
[2024-10-15] MEDS: FOLIC ACID 1 MG TABLET PO SCH (18:05)
[2024-10-15 18:16] LABS: PHOSPHORUS 4.3 mg/dL (2.5-4.9)
[2024-10-15 20:00] VITALS: BP 106/62; TEMP 97.5; O2SAT 100
[2024-10-15] MEDS: IV NS 0.9% 1,000 ML IV PRN (23:16)
[2024-10-16 04:00] VITALS: BP 93/48; TEMP 97.7; O2SAT 100
[2024-10-16 08:00] VITALS: BP 112/54; TEMP 98.1; O2SAT 100
[2024-10-16] MEDS: IV NS 0.9% 1,000 ML IV SCH (08:24)
[2024-10-16 11:52] LABS: WHITE BLOOD COUNT (AUTO) 3.2 K/uL (4.3-11.0)
[2024-10-16 11:57] LABS: PLATELET COUNT (AUTO) 54 K/uL (150-450); RED BLOOD CELL COUNT(AUTO) 3.08 MIL/uL (4.0-5.2); RED CELL DISTRIBUTION WIDTH 22.4 % (11.5-15.0)
[2024-10-16 12:41] LABS: CALCIUM, SERUM 8.5 mg/dL (8.5-10.1); CREATININE 0.8 mg/dL (0.6-1.3); SODIUM SERUM 136.0 mmol/L (136-145); UREA NITROGEN, BLOOD 7.0 mg/dL (7-18)
[2024-10-16 13:01] LABS: EOSINOPHILS % (MANUAL) 4 % (0-4); LYMPHOCYTES % (MANUAL) 31 % (16-48); MONOCYTES % (MANUAL) 10 % (0-11.0); NEUTROPHILS % (MANUAL) 55 (42-76); PLATELET ESTIMATE DECREASED
[2024-10-16 16:00] VITALS: BP 113/67; TEMP 97.5; O2SAT 100
[2024-10-16 20:00] VITALS: BP 109/76; TEMP 97.7; O2SAT 95
[2024-10-17 04:00] VITALS: BP 116/69; TEMP 98.6; O2SAT 100
[2024-10-17 08:00] VITALS: BP 108/78; TEMP 98.8; O2SAT 99
[2024-10-17 16:00] VITALS: BP 123/78; TEMP 97.9; O2SAT 100
[2024-10-17 17:16] LABS: PLATELET COUNT (AUTO) 60 K/uL (150-450); RED BLOOD CELL COUNT(AUTO) 2.89 MIL/uL (4.0-5.2); RED CELL DISTRIBUTION WIDTH 22.0 % (11.5-15.0); WHITE BLOOD COUNT (AUTO) 3.0 K/uL (4.3-11.0)
[2024-10-17 18:21] LABS: BAND % (MANUAL) 4 % (0.0-5.0); EOSINOPHILS % (MANUAL) 1 % (0-4); LYMPHOCYTES % (MANUAL) 45 % (16-48); MONOCYTES % (MANUAL) 1 % (0-11.0); NEUTROPHILS % (MANUAL) 49 (42-76)
[2024-10-17 18:22] LABS: PLATELET ESTIMATE DECREASED
[2024-10-17 19:05] LABS: CALCIUM, SERUM 8.3 mg/dL (8.5-10.1); CREATININE 0.8 mg/dL (0.6-1.3); SODIUM SERUM 139.0 mmol/L (136-145); UREA NITROGEN, BLOOD 8.0 mg/dL (7-18)
[2024-10-17 20:00] VITALS: BP_SYST 124; BP_SYST 128; BP_DIAS 68; BP_DIAS 78; TEMP 97.9; TEMP 98.4; O2SAT 100; O2SAT 96
[2024-10-17] MEDS: IV NS 0.9% 1,000 ML IV PRN (23:48)
[2024-10-18 04:00] VITALS: BP 126/82; TEMP 98.4; O2SAT 100
[2024-10-18 08:00] VITALS: BP 118/62; TEMP 98.2; O2SAT 100
[2024-10-18] MEDS ORDERED: HYDROMORPHONE INJ 2 MG/ML DISP.SYRIN IV PRN (10:30)
[2024-10-18] MEDS: HYDROMORPHONE HCL 2 MG TABLET PO PRN (11:38)
[2024-10-18 16:00] VITALS: BP 119/61; TEMP 98.2; O2SAT 98
[2024-10-18 20:00] VITALS: BP 128/62; TEMP 98.8; O2SAT 98
[2024-10-19 04:00] VITALS: BP 142/89; TEMP 100.2; O2SAT 100
[2024-10-19] MEDS: ACETAMINOPHEN 325 MG TABLET PO PRN (04:50)
[2024-10-19 08:00] VITALS: BP 121/69; TEMP 101.4; O2SAT 100
[2024-10-19 08:01] LABS: PLATELET COUNT (AUTO) 66 K/uL (150-450); RED BLOOD CELL COUNT(AUTO) 3.08 MIL/uL (4.0-5.2); RED CELL DISTRIBUTION WIDTH 23.7 % (11.5-15.0); WHITE BLOOD COUNT (AUTO) 5.3 K/uL (4.3-11.0)
[2024-10-19 08:10] LABS: CALCIUM, SERUM 8.4 mg/dL (8.5-10.1); CREATININE 0.9 mg/dL (0.6-1.3); SODIUM SERUM 137.0 mmol/L (136-145); UREA NITROGEN, BLOOD 14.0 mg/dL (7-18)
[2024-10-19 11:18] LABS: EOSINOPHILS % (MANUAL) 2 % (0-4); LYMPHOCYTES % (MANUAL) 21 % (16-48); MONOCYTES % (MANUAL) 17 % (0-11.0); NEUTROPHILS % (MANUAL) 60 (42-76); PLATELET ESTIMATE DECREASED
[2024-10-19 16:00] VITALS: BP 121/69; TEMP 100.2; O2SAT 97
[2024-10-19 20:00] VITALS: BP 107/71; TEMP 100.4; O2SAT 95
[2024-10-19] MEDS: KEY,NONCONTROL,TO KEEP IN PYXI 1 EA MC ONE (22:12)
[2024-10-20 04:00] VITALS: BP 125/67; TEMP 99.5; O2SAT 98
[2024-10-20 07:18] LABS: PLATELET COUNT (AUTO) 68 K/uL (150-450); RED BLOOD CELL COUNT(AUTO) 3.06 MIL/uL (4.0-5.2); RED CELL DISTRIBUTION WIDTH 24.0 % (11.5-15.0); WHITE BLOOD COUNT (AUTO) 5.5 K/uL (4.3-11.0)
[2024-10-20 08:00] VITALS: BP 139/64; TEMP 100; O2SAT 97
[2024-10-20 08:06] LABS: CALCIUM, SERUM 8.4 mg/dL (8.5-10.1); CREATININE 0.9 mg/dL (0.6-1.3); SODIUM SERUM 133.0 mmol/L (136-145); UREA NITROGEN, BLOOD 15.0 mg/dL (7-18)
[2024-10-20] MEDS: KEY,NONCONTROL,TO KEEP IN PYXI 1 EA MC ONE (09:42)
[2024-10-20 10:08] LABS: NEUTROPHILS % (MANUAL) 56 (42-76)
[2024-10-20 10:09] LABS: LYMPHOCYTES % (MANUAL) 24 % (16-48); MONOCYTES % (MANUAL) 20 % (0-11.0); PLATELET ESTIMATE DECREASED
[2024-10-20] MEDS: CEFTRIAXONE 1 G in IV D5W 50 ML IV SCH (10:17)
[2024-10-20 16:02] VITALS: BP 125/68; TEMP 99; O2SAT 97
[2024-10-20 20:40] VITALS: BP 98/48; TEMP 99; O2SAT 96
[2024-10-21 04:00] VITALS: BP 130/75; TEMP 98.6; O2SAT 100
[2024-10-21 04:41] VITALS: BP 106/57; TEMP 98.1; O2SAT 100
[2024-10-21 07:42] LABS: PLATELET COUNT (AUTO) 69 K/uL (150-450); RED BLOOD CELL COUNT(AUTO) 3.32 MIL/uL (4.0-5.2); RED CELL DISTRIBUTION WIDTH 23.8 % (11.5-15.0); WHITE BLOOD COUNT (AUTO) 6.0 K/uL (4.3-11.0)
[2024-10-21 08:00] VITALS: BP 132/65; TEMP 97.6; O2SAT 100
[2024-10-21 08:07] LABS: CALCIUM, SERUM 8.9 mg/dL (8.5-10.1); CREATININE 0.8 mg/dL (0.6-1.3); SODIUM SERUM 135.0 mmol/L (136-145); UREA NITROGEN, BLOOD 11.0 mg/dL (7-18)
[2024-10-21 14:18] LABS: LYMPHOCYTES % (MANUAL) 21 % (16-48); MONOCYTES % (MANUAL) 13 % (0-11.0); NEUTROPHILS % (MANUAL) 65 (42-76)
[2024-10-21 14:19] LABS: EOSINOPHILS % (MANUAL) 1 % (0-4); PLATELET ESTIMATE DECREASED
[2024-10-21 16:00] VITALS: BP 144/68; TEMP 97.9; O2SAT 100
[2024-10-21 20:00] VITALS: BP 119/74; TEMP 98.8; O2SAT 99
[2024-10-22 04:00] VITALS: BP 111/62; TEMP 98.1; O2SAT 96
[2024-10-22 08:00] VITALS: BP 127/65; TEMP 98.4; O2SAT 98
[2024-10-22 16:00] VITALS: BP 121/60; TEMP 97.3; O2SAT 96
== END 2024-10-22 18:55 | disposition home or self-care (01) | DRG 812 ==
LOC: ER 14:01 → MEDSG1 16:57
PROVIDERS: ATTEND Internal Medicine
PROC: 05HC33Z Insertion of Infusion Device into Left Basilic Vein, Percutaneous Approach (ICD-10-PCS; principal; 2024-10-14)
DX: D57.00 Hb-SS disease with crisis, unspecified (principal); D61.818 Other pancytopenia; J45.909 Unspecified asthma, uncomplicated; Z88.5 Allergy status to narcotic agent; Z86.2 Personal history of diseases of the blood and blood-forming organs and certain disorders involving the immune mechanism; Z88.8 Allergy status to other drugs, medicaments and biological substances; Z91.013 Allergy to seafood; Z79.51 Long term (current) use of inhaled steroids; Z79.899 Other long term (current) drug therapy; Z92.21 Personal history of antineoplastic chemotherapy; T80.89XA Other complications following infusion, transfusion and therapeutic injection, initial encounter; Y84.8 Other medical procedures as the cause of abnormal reaction of the patient, or of later complication, without mention of misadventure at the time of the procedure; Y92.239 Unspecified place in hospital as the place of occurrence of the external cause
CPT/HCPCS: 36415; 80048-TC; 80053-TC; 80061-TC; 81001; 83735-TC; 84100-TC; 84443-TC; 84702-TC; 84703-TC; 85025-TC; 85027-TC; 85045-TC; 87040-TC; 93971-TC; A4223; G0378; J0696; J1171; J1200; J2405; J7030; J7060; Q0163

== ENCOUNTER 2024-11-09 21:17 | Emergency (ER) | payer OTHER ==
[~2024-11-09] VITALS: Ht 162.6 cm; Wt 86.2 kg
[~2024-11-09 21:17] MED LIST changes: +ALBU18HF2 IH; -APIX5TAB PO; -HYDR500C2 PO
[2024-11-09] MEDS ORDERED: ONDANSETRON HCL/PF 4 MG/2 ML VIAL ONE (22:40)
[2024-11-09] MEDS ORDERED: HYDROMORPHONE 1 MG/1 ML DISP.SYRIN ONE (22:40)
[2024-11-09] MEDS: HYDROMORPHONE INJ 2 MG/ML DISP.SYRIN IV ONE (22:46)
[2024-11-09] MEDS: ONDANSETRON HCL/PF 4 MG/2 ML VIAL IVP ONE (22:46)
[2024-11-09] MEDS: IV NS 0.9% 1,000 ML BAG IV ONE (22:46)
[2024-11-09 22:57] LABS: CALCIUM, SERUM 8.2 mg/dL (8.5-10.1); CREATININE 0.8 mg/dL (0.6-1.3); SODIUM SERUM 136.0 mmol/L (136-145); UREA NITROGEN, BLOOD 9.0 mg/dL (7-18)
[2024-11-09 23:01] LABS: INR 1.03 (0.91-1.10)
[2024-11-09 23:21] LABS: RED BLOOD CELL COUNT(AUTO) 2.94 MIL/uL (4.0-5.2); RED CELL DISTRIBUTION WIDTH 22.0 % (11.5-15.0); WHITE BLOOD COUNT (AUTO) 6.0 K/uL (4.3-11.0)
[2024-11-09 23:23] LABS: PLATELET COUNT (AUTO) 32 K/uL (150-450)
[2024-11-09] MEDS ORDERED: POTASSIUM CHLORIDE 20 MEQ TAB.PRT.SR PO ONE (23:24)
[2024-11-09] MEDS: POTASSIUM CHLORIDE 20 MEQ TAB.PRT.SR PO ONE (23:33)
[2024-11-09 23:44] LABS: BAND % (MANUAL) 2 % (0.0-5.0); LYMPHOCYTES % (MANUAL) 5 % (16-48); MONOCYTES % (MANUAL) 2 % (0-11.0); NEUTROPHILS % (MANUAL) 91 (42-76); PLATELET ESTIMATE DECREASED
[2024-11-09 23:52] LABS: APPEARANCE,URINE CLOUDY (CLEAR); BLOOD, URINE NEGATIVE Ery/uL (NEGATIVE); LEUKOCYTE ESTERASE ,URINE NEGATIVE (NEGATIVE); NITRITE, URINE NEGATIVE (NEGATIVE); UGLUCOSE NEGATIVE (NEGATIVE)
[2024-11-09 23:55] LABS: ADD URINE CULTURE YES; YEAST,URINE Moderate /HPF (None Seen)
[2024-11-09 23:56] LABS: SQUAMOUS EPITHELIAL CELL,UR 21-50 /HPF (None Seen)
[2024-11-10 00:31] VITALS: BP 101/58; TEMP 97.9; O2SAT 98
== END 2024-11-10 00:32 | disposition home or self-care (01) ==
LOC: ER 21:44
DX: D57.00 Hb-SS disease with crisis, unspecified (principal); D69.6 Thrombocytopenia, unspecified; J45.909 Unspecified asthma, uncomplicated; M25.50 Pain in unspecified joint; Z88.5 Allergy status to narcotic agent; Z88.8 Allergy status to other drugs, medicaments and biological substances; Z91.013 Allergy to seafood
CPT/HCPCS: 99284; 96374; 96375; 71045; 96361; 85027; 80048; 87086; 85007; 81001; 36415; 85730; J1200; J2405; J7030; J1171

== ENCOUNTER 2024-11-23 18:58 | Inpatient (IN) | payer OTHER ==
[~2024-11-23] VITALS: Ht 162.6 cm; Wt 86.2 kg
[2024-11-23] MEDS ORDERED: HYDROMORPHONE INJ 2 MG/ML DISP.SYRIN ONE ×2 (21:32→22:59)
[2024-11-23] MEDS: HYDROMORPHONE INJ 2 MG/ML DISP.SYRIN IM ONE ×2 (21:46→23:07)
[2024-11-23 22:00] LABS: PLATELET COUNT (AUTO) 104 K/uL (150-450); RED BLOOD CELL COUNT(AUTO) 3.15 MIL/uL (4.0-5.2); RED CELL DISTRIBUTION WIDTH 20.2 % (11.5-15.0); WHITE BLOOD COUNT (AUTO) 2.9 K/uL (4.3-11.0)
[2024-11-23 22:14] LABS: EOSINOPHILS % (MANUAL) 6 % (0-4); LYMPHOCYTES % (MANUAL) 25 % (16-48); MONOCYTES % (MANUAL) 6 % (0-11.0); NEUTROPHILS % (MANUAL) 62 (42-76); NUCLEATED RED BLOOD CELLS 1.0 /100WBC (0.0-0.0); REACTIVE LYMPHOCYTES 1 % (0-0)
[2024-11-23 22:15] VITALS: O2SAT 98
[2024-11-23 22:16] LABS: PLATELET ESTIMATE GIANT PLATELET SEEN
[2024-11-24] MEDS ORDERED: ZOLPIDEM TARTRATE 5 MG TABLET PO PRN (02:30)
[2024-11-24] MEDS ORDERED: ALBUTEROL FS 2.5 MG/3 ML VIAL.NEB NEB PRN ×2 (02:30→10:30)
[2024-11-24] MEDS ORDERED: Z GUARD REMEDY 4 OZ OINT TP PRN (02:30)
[2024-11-24] MEDS ORDERED: ACETAMINOPHEN 325 MG TABLET PO PRN (02:30)
[2024-11-24] MEDS ORDERED: MAGNESIUM HYDROXIDE 30 ML UDC PO PRN (02:30)
[2024-11-24] MEDS ORDERED: MAG HYDROX/AL HYDROX/SIMETH 30 ML UDC PO PRN (02:30)
[2024-11-24] MEDS ORDERED: ONDANSETRON HCL/PF 4 MG/2 ML VIAL IVP PRN (02:30)
[2024-11-24] MEDS ORDERED: HYDROMORPHONE INJ 2 MG/ML DISP.SYRIN ONE (03:24)
[2024-11-24] MEDS: HYDROMORPHONE INJ 2 MG/ML DISP.SYRIN IM PRN (03:26)
[2024-11-24 04:00] VITALS: BP 107/63; TEMP 98.4; O2SAT 97
[2024-11-24] MEDS: PANTOPRAZOLE 40 MG TABLET.DR PO SCH (07:30)
[2024-11-24] MEDS: HYDROMORPHONE 1 MG/1 ML DISP.SYRIN IM STA (07:55)
[2024-11-24] MEDS ORDERED: DIPH25TA25 PO (07:58)
[2024-11-24] MEDS ORDERED: CITA10TA17 PO (07:58)
[2024-11-24] MEDS ORDERED: FERR-68 PO (07:58)
[2024-11-24 08:00] VITALS: BP 114/57; TEMP 98.2; O2SAT 95
[2024-11-24 08:03] LABS: CREATININE 0.9 mg/dL (0.6-1.3); PHOSPHORUS 4.8 mg/dL (2.5-4.9); SODIUM SERUM 138.0 mmol/L (136-145); UREA NITROGEN, BLOOD 9.0 mg/dL (7-18)
[2024-11-24 08:09] LABS: CALCIUM, SERUM 8.4 mg/dL (8.5-10.1)
[2024-11-24 08:11] LABS: PLATELET COUNT (AUTO) 71 K/uL (150-450); RED BLOOD CELL COUNT(AUTO) 2.83 MIL/uL (4.0-5.2); RED CELL DISTRIBUTION WIDTH 19.9 % (11.5-15.0); WHITE BLOOD COUNT (AUTO) 2.5 K/uL (4.3-11.0)
[2024-11-24 08:51] LABS: EOSINOPHILS % (MANUAL) 2 % (0-4); LYMPHOCYTES % (MANUAL) 44 % (16-48); MONOCYTES % (MANUAL) 6 % (0-11.0); NEUTROPHILS % (MANUAL) 48 (42-76); PLATELET ESTIMATE DECREASED
[2024-11-24] MEDS: POTASSIUM CHLORIDE 20 MEQ TAB.PRT.SR PO ONE (11:10)
[2024-11-24] MEDS: IV NS 0.9% 1,000 ML IV SCH (12:30)
[2024-11-24] MEDS: HYDROMORPHONE 1 MG/1 ML DISP.SYRIN IV PRN (12:37)
[2024-11-24 16:00] VITALS: BP 102/54; TEMP 97.9; O2SAT 100
[2024-11-24] MEDS ORDERED: CITALOPRAM HYDROBROMIDE 20 MG TABLET PO SCH (18:00)
[2024-11-24] MEDS ORDERED: FOLIC ACID 1 MG TABLET PO SCH (18:00)
[2024-11-24] MEDS ORDERED: FERROUS SULFATE (325 MG) 325 MG/TAB TABLET PO SCH (18:00)
[2024-11-24 20:00] VITALS: BP 104/63; TEMP 97.7; O2SAT 100
[2024-11-24] MEDS: CITALOPRAM HYDROBROMIDE 20 MG TABLET PO SCH (21:34)
[2024-11-24] MEDS: FOLIC ACID 1 MG TABLET PO SCH (21:34)
[2024-11-24] MEDS: FERROUS SULFATE (325 MG) 325 MG/TAB TABLET PO SCH (21:34)
[2024-11-25 08:00] VITALS: BP 125/56; TEMP 98.1; O2SAT 100
[2024-11-25 16:00] VITALS: BP 125/78; TEMP 97.3; O2SAT 99
[2024-11-25 17:52] LABS: PREGNANCY TEST URINE QUAL NEGATIVE (NEGATIVE)
[2024-11-25 17:53] LABS: CALCIUM, SERUM 8.2 mg/dL (8.5-10.1); CREATININE 0.9 mg/dL (0.6-1.3); PHOSPHORUS 3.8 mg/dL (2.5-4.9); SODIUM SERUM 143.0 mmol/L (136-145); UREA NITROGEN, BLOOD 8.0 mg/dL (7-18)
[2024-11-25 20:02] VITALS: BP 133/74; TEMP 97.7; O2SAT 100
[2024-11-26 08:00] VITALS: BP 133/101; TEMP 97.7; O2SAT 100
[2024-11-26 09:18] LABS: PLATELET COUNT (AUTO) 74 K/uL (150-450); RED BLOOD CELL COUNT(AUTO) 2.98 MIL/uL (4.0-5.2); RED CELL DISTRIBUTION WIDTH 19.6 % (11.5-15.0)
[2024-11-26 09:26] LABS: WHITE BLOOD COUNT (AUTO) 1.6 K/uL (4.3-11.0)
[2024-11-26 11:30] LABS: EOSINOPHILS % (MANUAL) 3 % (0-4); LYMPHOCYTES % (MANUAL) 53 % (16-48); MONOCYTES % (MANUAL) 3 % (0-11.0); NEUTROPHILS % (MANUAL) 41 (42-76); PLATELET ESTIMATE DECREASED
[2024-11-26] MEDS: LEVOFLOXACIN (250MG) 250 MG TABLET PO SCH (14:26)
[2024-11-26 16:00] VITALS: BP 129/75; TEMP 97.7; O2SAT 99
[2024-11-26 20:00] VITALS: BP 143/71; TEMP 97.7; O2SAT 100
[2024-11-26] MEDS: MEROPENEM 500 MG in IV NS 0.9% 50 ML IV SCH (20:35)
[2024-11-27] MEDS: HYDROMORPHONE HCL 2 MG TABLET PO PRN (00:19)
[2024-11-27 09:13] VITALS: BP 127/69; TEMP 98.2; O2SAT 97
[2024-11-27 10:50] LABS: PLATELET COUNT (AUTO) 99 K/uL (150-450); RED BLOOD CELL COUNT(AUTO) 3.23 MIL/uL (4.0-5.2); RED CELL DISTRIBUTION WIDTH 19.7 % (11.5-15.0); WHITE BLOOD COUNT (AUTO) 3.3 K/uL (4.3-11.0)
[2024-11-27 11:33] LABS: EOSINOPHILS % (MANUAL) 1 % (0-4); LYMPHOCYTES % (MANUAL) 26 % (16-48); MONOCYTES % (MANUAL) 5 % (0-11.0); NEUTROPHILS % (MANUAL) 68 (42-76); PLATELET ESTIMATE DECREASED
[2024-11-27 17:53] LABS: OCCULT BLOOD STOOL NEGATIVE (NEGATIVE)
[2024-11-27] MEDS: IV NS 0.9% 1,000 ML IV PRN (18:02)
[2024-11-27 20:00] VITALS: BP 120/71; TEMP 98.7; O2SAT 97
[2024-11-28 07:30] VITALS: BP 147/84; TEMP 98.2; O2SAT 96
[2024-11-28 09:38] LABS: PLATELET COUNT (AUTO) 98 K/uL (150-450); RED BLOOD CELL COUNT(AUTO) 2.83 MIL/uL (4.0-5.2); RED CELL DISTRIBUTION WIDTH 20.2 % (11.5-15.0); WHITE BLOOD COUNT (AUTO) 4.3 K/uL (4.3-11.0)
[2024-11-28 11:01] LABS: LYMPHOCYTES % (MANUAL) 14 % (16-48); MONOCYTES % (MANUAL) 7 % (0-11.0); NEUTROPHILS % (MANUAL) 79 (42-76); PLATELET ESTIMATE DECREASED
[2024-11-28] MEDS ORDERED: LEVO500T90 PO (12:16)
[2024-11-28 16:00] VITALS: BP 112/51; TEMP 98.2; O2SAT 100
== END 2024-11-28 21:15 | disposition home or self-care (01) | DRG 810 ==
LOC: ER 19:04 → MED 11-24 02:08
PROVIDERS: ADMIT Registered Nurse Psychiatric/Mental Health
PROC: 05HF33Z Insertion of Infusion Device into Left Cephalic Vein, Percutaneous Approach (ICD-10-PCS; principal; 2024-11-24)
DX: D61.818 Other pancytopenia (principal); D57.00 Hb-SS disease with crisis, unspecified; E87.6 Hypokalemia; J45.909 Unspecified asthma, uncomplicated; Z88.5 Allergy status to narcotic agent; D46.9 Myelodysplastic syndrome, unspecified; Z78.9 Other specified health status; Z88.8 Allergy status to other drugs, medicaments and biological substances; Z91.013 Allergy to seafood; Z79.51 Long term (current) use of inhaled steroids; Z79.60 Long term (current) use of unspecified immunomodulators and immunosuppressants; Z76.5 Malingerer [conscious simulation]; D50.9 Iron deficiency anemia, unspecified; D70.9 Neutropenia, unspecified
CPT/HCPCS: 36410; 36415; 80048-TC; 82272-TC; 83735-TC; 84100-TC; 84703-TC; 85027-TC; 85045-TC; 86850-TC; 87040-TC; A4223; G0378; J1171; J1200; J2185; J7030; Q0163